=== PATIENT | female | born 1980 | race African-American/Black ===

== ENCOUNTER 2017-04-17 18:13 | Emergency (ER) | payer SELFPAY ==
[2017-04-17 18:25] VITALS: BP 147/94; TEMP 98; BMI 35.0
--- NOTE | 2017-04-17 18:26 | PDOC ---
Rapid Medical Evaluation Chief Complaint: Headache Time Seen by Provider: 04/17/17 18:21 Medical Evaluation: 04/17/17 18:21 I have performed a brief in-person evaluation of this patient. The patient presents with a chief complaint of: SANCHEZ this am w/ BP of 140/85 at home today. States she was told to come to ED by her PMD if BP is >140s/80s. SANCHEZ since resolved and denies any other medical complaints at this time Pertinent physical exam findings:BP 147/94, appears well I have ordered the following:nothing The patient will proceed to the ED for further evaluation.
[2017-04-17 19:12] VITALS: PULSE 81
--- NOTE | 2017-04-17 19:15 | PDOC ---
History of Present Illness - General Chief Complaint: Headache Stated Complaint: HEADACHE Time Seen by Provider: 04/17/17 18:21 - History of Present Illness Initial Comments: 04/17/17 19:09 CHIEF COMPLAINT: headache, resolved HISTORY OF PRESENT ILLNESS: 37 yo F with no PMH presents to fast track with headache earlier this morning, now resolved. Patient reports that "when I woke up this morning I felt a little headache, and I took my blood pressure and it was 144/85. I thought I should go see the doctor. I took a Motrin and I'm ok now." Patient denies any headache at this time, denies any blurry vision, weakness, nausea, SOB, chest pain, or any other symptoms. She reports "I feel fine, but I like to check my blood pressure because a lot of times I go to the doctor I get anxious and my blood pressure goes up." PAST MEDICAL HISTORY: Denies past medical history FAMILY HISTORY: Denies SOCIAL HISTORY:Denies tobacco, alcohol, illicit drug use. SURGICAL HISTORY: Denies ALLERGIES: No known drug allergies REVIEW OF SYSTEMS as per HPI PHYSICAL EXAM General Appearance: Well-appearing, appropriately dressed. No apparent distress , no intoxication. HEENT: EOMI, PERRLA, normal ENT inspection, normal voice, TMs normal, pharynx normal. No conjunctival pallor. No photophobia, scleral icterus. Respiratory/Chest: Lungs CTAB. Cardiovascular: RRR. S1, S2. Musculoskeletal/Extremities: Normal inspection. FROM of all extremities, normal capillary refill. Pelvis Stable. No CVA tenderness. No tenderness to extremities, pedal edema, swelling, erythema or deformity. Integumentary: Appropriate color, dry, warm. No cyanosis, erythema, jaundice or rash Neurologic: test preparer II-XII intact. Fully oriented, alert. Appropriate mood/affect. Motor strength 5/5. No appreciable EOM palsy, facial droop or sensory deficit. Past History - Past Medical History Allergies/Adverse Reactions: Allergies Allergy/AdvReac Type Severity Reaction Status Date / Time No Known Allergies Allergy Verified 04/17/17 18:25 Home Medications: Ambulatory Orders NK [No Known Home Medication] 04/17/17 COPD: No - Suicide/Smoking/Psychosocial Hx Smoking History: Never smoked *Physical Exam - Vital Signs Last Vital Signs Temp Pulse Resp BP Pulse Ox 98 F 115 H 20 147/94 100 04/17/17 18:19 04/17/17 18:19 04/17/17 18:19 04/17/17 18:19 04/17/17 18:19 Medical Decision Making - Medical Decision Making 04/17/17 19:13 37 yo F with no PMH presents to fast track with headache earlier this morning, now resolved. Patient is well appearing and completely asymptomatic at this time. Patient HR was 115 on arrival to ED but now HR is 81, all VSS. Advised patient to f/u with PCP within the next 1-2 weeks and of signs and symptoms for return to ER; patient verbalized understanding and agrees to plan. *DC/Admit/Observation/Transfer Diagnosis at time of Disposition: Blood pressure check - Discharge Dispostion Disposition: HOME Condition at time of disposition: Stable Admit: No - Referrals Referrals: Nilam Resendez MD [Primary Care Provider] - - Patient Instructions Printed Discharge Instructions: Recommendations to Help Prevent High Blood Pressure Additional Instructions: As discussed, please follow up with your primary care doctor within the next 1- 2 weeks. Drink plenty of fluids to ensure proper hydration. If you develop any shortness of breath, chest pain, dizziness, nausea, vomiting, sudden headache, change in vision, or any new or worsening symptoms, please return to the ER. - Post Discharge Activity
== END 2017-04-17 19:19 | disposition home or self-care (01) ==
LOC: JERFT 18:13
DX: R51 Headache (principal)
CPT/HCPCS: 99281-25